=== PATIENT | female | born 1995 | race Asian ===

== ENCOUNTER 2017-08-06 13:40 | Emergency (ER) | payer BC ==
[2017-08-06] MEDS ORDERED: NS 0.9% 1000 ML* 2,000 ML IV ONE (13:52)
[2017-08-06] MEDS ORDERED: Ondansetron ODT TAB* 4 MG PO ONE (13:52)
[2017-08-06 14:09] LABS: ABS Basophils 0 10^3/ul (0-0.2); ABS Eosinophils 0 10^3/ul (0-0.6); ABS Lymphocytes 0.6 10^3/ul (1.0-4.8); ABS Monocytes 0.4 10^3/ul (0-0.8); ABS Neutrophils 6.4 10^3/ul (1.5-7.7); ABS Nucleated RBC 0 10^3/ul; Eosinophil % 0.4 % (0-6); Hematocrit 41 % (35-47); Lymphocyte % 8.5 % (25-47); Mean Corpuscular HGB Conc 34 g/dl (31-36); Mean Corpuscular Hemoglobin 28 pg (27-31); Mean Corpuscular Volume 82 fL (80-97); Mean Platelet Volume 8.4 um3 (7.4-10.4); Nucleated Red Blood Cells % 0; Platelet Count 204 10^3/ul (150-450); Red Blood Count 5.08 10^6/ul (4.0-5.4); Red Cell Distribution Width 13 % (10.5-15); White Blood Count 7.5 10^3/ul (3.5-10.8)
[2017-08-06 14:28] LABS: EGFR Non-African American 115.4 (>60)
--- NOTE | 2017-08-06 16:13 | RAD ---
INDICATION: Periumbilical pain COMPARISON: None TECHNIQUE: Real time ultrasound images of the right lower quadrant were acquired in alcantara scale and Doppler color flow. FINDINGS: The appendix is not discreetly visualized. Normal loops of bowel are seen. There is no acute inflammatory change, measurable lymphadenopathy or drainable fluid collection. IMPRESSION: Nonvisualization of the appendix.
[2017-08-06] MEDS ORDERED: NS 0.9% 1000 ML* 1,000 ML IV SCH (17:30)
[2017-08-06] MEDS ORDERED: Iohexol 300* (CONTRAST) 10 ML SDV IV ONE (17:34)
[2017-08-06 17:36] LABS: Urine Appearance Clear; Urine Blood 1+ (Negative); Urine Color Yellow; Urine Ketones Trace (Negative); Urine Protein Negative (Negative); Urine Specific Gravity 1.017 (1.010-1.030); Urine Urobilinogen Negative (Negative)
[2017-08-06 18:58] VITALS: BP 101/51
--- NOTE | 2017-08-06 20:39 | RAD ---
CLINICAL HISTORY: . Umbilical pain radiating towards the right side COMPARISON: Same day ultrasound of the pelvis and appendix. The appendix was not discretely visualized. TECHNIQUE: Contrast enhanced CT examination of the abdomen and pelvis from the lung bases through the initial tuberosities. The patient received 79 mL Omnipaque 300 intravenously prior to imaging.The patient received oral contrast as well prior to imaging. FINDINGS: VISUALIZED LUNG BASES: The visualized lung bases are grossly clear. There is no pleural effusion. ABDOMEN AND PELVIS: The liver, spleen, pancreas and adrenal glands are grossly normal in appearance. The gallbladder is normal. The kidneys are normal in appearance without focal mass, calcification or signs of hydronephrosis. Neural contrast has progressed as far as the transverse colon. The small and large bowel are not distended. The patient's normal appendix is identified in the right lower quadrant with gas and oral contrast the lumen measuring just under 6 mm in diameter (coronal image 48 and axial image 46). There is no gross retroperitoneal lymphadenopathy. There are scattered mildly enlarged lymph nodes, the largest in the right lower quadrant measuring 1.1 cm in short axis dimension (coronal image 48. The pelvic viscera is normal in appearance. The abdominal aorta and iliac arteries are normal in course and diameter. There are no sinister bone lesions. IMPRESSION: 1. Normal-appearing appendix. 2. In the correct clinical setting CT findings could be consistent with mesenteric adenitis.
--- NOTE | 2017-08-06 21:22 | RAD ---
INDICATION: Periumbilical pain COMPARISON: None. TECHNIQUE: Real-time transabdominal only ultrasound examination of the female pelvis including grayscale and Doppler color flow imaging. FINDINGS: Uterus: The uterus is normal in size and echogenicity measuring 6.4 x 2.6 x 3.9 cm. The endometrial stripe is smooth and uniform measuring 5 mm in thickness. Ovaries: The right and left ovary measure 3.6 x 1.4 x 2.6 cm and 2.7 x 1.4 x 1.7 cm, respectively. Normal arterial and venous waveforms are identified. In the right ovary there is an anechoic and avascular structure measuring 9 mm in greatest dimension most consistent with a dominant follicle. There is no free fluid in the cul-de-sac. IMPRESSION: Normal and age-appropriate pelvic ultrasound.
[2017-08-06] MEDS: O ndansetron ODT 4MG 2TAB PRPK 4 MG PAK PO ONE ×2 (21:30→23:28)
--- NOTE | 2017-08-06 21:34 | ED ---
Nannette Gage Nilda, scribed for Raul Davis MD on 08/06/17 at 1449 . Abdominal Pain/Female - HPI Summary HPI Summary: This patient is a 21 year old F BIBA from [facility] with a chief complaint of constant acute umbilicus pain radiating to right since last night 2100 that has currently reduced to 1/10 pain rating. Symptoms aggravated by movement and alleviated by rest. - History of Current Complaint Chief Complaint: EDAbdPain Stated Complaint: ABD PAIN Hx Obtained From: Patient Onset/Duration: Sudden Onset, Lasting Days, Still Present Timing: Constant Severity Initially: Severe Severity Currently: Mild Pain Intensity: 1 Pain Scale Used: 0-10 Numeric Location: Umbilical Radiates: Yes Radiates to: RLQ Aggravating Factor(s): Movement Alleviating Factor(s): Other: - rest Allergies/Adverse Reactions: Allergies Allergy/AdvReac Type Severity Reaction Status Date / Time No Known Allergies Allergy Verified 08/06/17 15:12 Home Medications: Home Medications Norethindrone (NF) [Isela (NF)] 0.35 mg PO DAILY 08/06/17 [History Confirmed 08/06/17] PMH/Surg Hx/FS Hx/Imm Hx Sensory History: Denies: Hx Legally Blind EENT History: Denies: Hx Deafness Infectious Disease History: No Infectious Disease History: Denies: Traveled Outside the [place] in Last 30 Days - Family History Known Family History: Positive: Other - appendicitis (mother) - Social History Occupation: Student Review of Systems Negative: Shortness Of Breath Positive: Abdominal Pain All Other Systems Reviewed And Are Negative: Yes Physical Exam - Summary Physical Exam Summary: General: well-appearing, no pain distress Skin: warm, color reflects adequate perfusion, dry Head: normal Eyes: EOMI, YONAS ENT: normal Neck: supple, nontender Respiratory: CTA, breath sounds present Cardiovascular: RRR Abdomen: Mild tenderness in periumbilical region with palpation. Pain with obturator sign. Bowel sounds: present Musculoskeletal: normal, strength/ROM intact Neurological: normal, sensory/motor intact, A&O x3 Psychological: affect/mood appropriate Triage Information Reviewed: Yes Vital Signs On Initial Exam: Initial Vitals Temp Pulse Resp BP Pulse Ox 99.6 F 74 12 103/56 98 08/06/17 13:54 08/06/17 13:54 08/06/17 13:54 08/06/17 13:54 08/06/17 13:54 Vital Signs Reviewed: Yes Diagnostics - Vital Signs Vital Signs Temp Pulse Resp BP Pulse Ox 08/06/17 13:54 99.6 F 74 12 103/56 98 - Laboratory Lab Results: Lab Results 08/06/17 08/06/17 08/06/17 Range/Units 13:58 13:58 13:58 WBC 7.5 (3.5-10.8) 10^3/ul RBC 5.08 (4.0-5.4) 10^6/ul Hgb 14.0 (12.0-16.0) g/dl Hct 41 (35-47) % MCV 82 (80-97) fL MCH 28 (27-31) pg MCHC 34 (31-36) g/dl RDW 13 (10.5-15) % Plt Count 204 (150-450) 10^3/ul MPV 8.4 (7.4-10.4) um3 Neut % (Auto) 85.6 H (38-83) % Lymph % (Auto) 8.5 L (25-47) % [place] % (Auto) 5.4 (0-7) % Eos % (Auto) 0.4 (0-6) % Baso % (Auto) 0.1 (0-2) % Absolute Neuts (auto) 6.4 (1.5-7.7) 10^3/ul Absolute Lymphs (auto) 0.6 L (1.0-4.8) 10^3/ul Absolute Monos (auto) 0.4 (0-0.8) 10^3/ul Absolute Eos (auto) 0 (0-0.6) 10^3/ul Absolute Basos (auto) 0 (0-0.2) 10^3/ul Absolute Nucleated RBC 0 10^3/ul Nucleated RBC % 0 Sodium 135 L (139-145) mmol/L Potassium 3.9 (3.5-5.0) mmol/L Chloride 104 (101-111) mmol/L Carbon Dioxide 24 (22-32) mmol/L Anion Gap 7 (2-11) mmol/L BUN 10 (6-24) mg/dL Creatinine 0.66 (0.51-0.95) mg/dL Est GFR ( Amer) 148.4 (>60) Est GFR (Non-Af Amer) 115.4 (>60) BUN/Creatinine Ratio 15.2 (8-20) Glucose 91 (70-100) mg/dL Lactic Acid 0.7 (0.5-2.0) mmol/L Calcium 9.3 (8.6-10.3) mg/dL Total Bilirubin 0.70 (0.2-1.0) mg/dL AST 17 (13-39) U/L ALT 9 (7-52) U/L Alkaline Phosphatase 48 (34-104) U/L C-Reactive Protein 15.35 H (< 5.00) mg/L Total Protein 7.3 (6.4-8.9) g/dL Albumin 4.1 (3.2-5.2) g/dL Globulin 3.2 (2-4) g/dL Albumin/Globulin Ratio 1.3 (1-3) Lipase 17 (11.0-82.0) U/L Beta HCG, Quant < 0.60 mIU/mL Result Diagrams: 08/06/17 13:58 08/06/17 13:58 Lab Statement: Any lab studies that have been ordered have been reviewed, and results considered in the medical decision making process. - CT Abd/Pel CT Interpretation Completed By: Radiologist - 1. Normal-appearing appendix. 2. In the correct clinical setting CT findings could be consistent with mesenteric adenitis. Dr. Davis has reviewed this report. - Additional Comments Diagnostic Additional Comments: Appendix US reveals nonvisualization of the appendix. Dr. Davis has reviewed this radiology report. Re-Evaluation - Re-Evaluation First Eval Re-Evaluation Time: 17:29 Comment: Still has mild RLQ pain. Reviewed labs and imaging with pt. Pt is not hungry. Abdominal Pain Fem Course/Dx - Course Course Of Treatment: Medications reviewed. IMPROVED IN ED. DISCUSSED RESULTS WITH THE PATIENT. F/U REPLACED BY [facility]; RETURN IF WORSE. - Diagnoses Provider Diagnoses: Abdominal pain, right lower quadrant Discharge - Sign-Out/Discharge Documenting (check all that apply): Discharge/Admit/Transfer - Discharge Plan Condition: Stable Disposition: HOME Patient Education Materials: Acute Abdominal Pain (ED) Referrals: [facility] - Quan CORCORAN [Primary Care Provider] - Additional Instructions: FOLLOW UP WITH REPLACED BY [facility]. RETURN TO THE EMERGENCY DEPARTMENT FOR ANY WORSENING OF YOUR CONDITION OR QUESTIONS OR CONCERNS. - Billing Disposition and Condition Condition: STABLE Disposition: HOME The documentation as recorded by the Nannette vega Nilda accurately reflects the service I personally performed and the decisions made by me, Raul Davis MD.
== END 2017-08-06 23:29 | disposition home or self-care (01) ==
LOC: ED 13:40
DX: R10.31 Right lower quadrant pain (principal)
CPT/HCPCS: 36415; 74177; 76705; 76856; 80053; 81003; 81015; 83605; 83690; 84702; 85025; 86140; 87086; 96360; 99283; A9270-GY; Q9967